=== PATIENT | male | born 1955 | race Caucasian/White ===

== ENCOUNTER 2019-10-17 14:46 | Outpatient (CLI) | payer MEDICAID, SELFPAY ==
--- NOTE | 2019-10-17 14:53 | USCV_ITS ---
Primo Steel Age: 63 Gender: M : 1955 Exam Date: 10/17/2019 15:07 Ordering Phys: Justin Grossman Technologist: Suad Colunga Exam Location: [facility] [place] Indication: Hypertension, Mixed hyperlipidemia BP: 138 / 91 HR: 110 Rhythm: Sinus Technical Quality: Fair MEASUREMENTS (Male / Female) Normal Values 2D ECHO LV Diastolic Diameter PLAX 5.9 cm 4.2 - 5.9 / 3.9 - 5.3 cm LV Systolic Diameter PLAX 5.6 cm LV Chamber Size 5.6 cm IVS Diastolic Thickness 2.0 cm 0.6 - 1.0 / 0.6 - 0.9 cm IVS Systolic Thickness 1.9 cm LVPW Diastolic Thickness 1.2 cm 0.6 - 1.0 / 0.6 - 0.9 cm LVPW Systolic Thickness 1.1 cm RV Chamber Size 2.6 cm LVOT Diameter 2.0 cm LV Ejection Fraction 2D Teich 11.9 % LV Ejection Fraction MOD 2C 38.9 % LV Ejection Fraction 2C AL 40.4 % LA Diameter 5.2 cm LA Width 3.3 cm LA Height 6.8 cm RA Width 3.3 cm RA Height 5.2 cm Aorta at Sinotubular Diameter 2.6 cm M-MODE LV Diastolic Diameter MM 6.9 cm 4.2 - 5.9 / 3.9 - 5.3 cm LV Systolic Diameter MM 6.0 cm LV Ejection Fraction MM Teich 27.3 % IVS Diastolic Thickness MM 1.0 cm 0.6 - 1.0 / 0.6 - 0.9 cm IVS Systolic Thickness MM 1.0 cm LVPW Diastolic Thickness MM 1.2 cm 0.6 - 1.0 / 0.6 - 0.9 cm LVPW Systolic Thickness MM 1.2 cm RV Diastolic Diameter MM 2.1 cm Aortic Annulus Diameter 3.3 cm LA Ao Ratio MM 1.6 MV E Point Septal Separation 1.8 cm DOPPLER AV Peak Velocity 120.0 cm/s LVOT Peak Velocity 80.0 cm/s AV Area Cont Eq vti 2.1 cm squared AV Area Cont Eq pk 2.1 cm squared MV Area PHT 5.0 cm squared Mitral E to A Ratio 1.2 MV E' Velocity 4.0 cm/s Mitral E to MV E' Ratio 18.0 Mitral E to LV E' Lateral Ratio 21.5 Mitral E to LV E' Septal Ratio 15.4 TR Peak Velocity 260.0 cm/s TR Peak Gradient 27.0 mmHg TR Mean Velocity 200.3 cm/s TR Mean Gradient 16.8 mmHg TR Velocity Time Integral 78.5 cm TV Peak E Velocity 41.0 cm/s Right Atrial Pressure 3.0 mmHg Pulmonary Artery Systolic Pressu 30.0 mmHg PV Peak Velocity 75.0 cm/s RV Acceleration Time 0.1 s RV Ejection Time 0.2 s RV AcT/ET 0.4 FINDINGS Left Ventricle Mildly dilated left ventricle. Severely decreased left ventricular systolic function. Left ventricular ejection fraction is estimated at 30-35 %. Global left ventricular hypokinesis. Grade II diastolic dysfunction, moderately elevated filling pressures. Flattened septum in systole consistent with right ventricle pressure overload. Right Ventricle Mildly increased right ventricular size. Mildly decreased right ventricular systolic function. Right ventricular systolic pressure 30 mmHg. Right Atrium Normal right atrial size. Right atrial pressure estimated at 3 mm Hg, Left Atrium Mildly increased left atrial size. Mitral Valve Mildly thickened mitral valve. No mitral valve stenosis. Mild mitral valve regurgitation. Aortic Valve Mildly thickened trileaft aortic valve. No aortic valve stenosis. No aortic valve regurgitation. Tricuspid Valve Structurally normal tricuspid valve. Trace tricuspid valve regurgitation. Pulmonic Valve Pulmonic valve not well visualized. Trace pulmonary valve regurgitation. Pericardium No pericardial effusion. Normal sized inferior vena cava. Aorta Normal sized aortic root. CONCLUSIONS 1. Mildly dilated left ventricle. Severely decreased left ventricular systolic function. Left ventricular ejection fraction is estimated at 30-35 %. Global left ventricular hypokinesis. Grade II diastolic dysfunction, moderately elevated filling pressures. 2. Mildly increased right ventricular size. Mildly decreased right ventricular systolic function. 3. Mild mitral valve regurgitation. 4. Mild pulmonary hypertension with pulmonary artery pressure estimated at 30 mm Hg. 5. No prior similar studies to compare. Ai Monroe MD (Electronically Signed) Final Date: 19 October 2019 17:10 S
== END 2019-10-17 14:47 | disposition home or self-care (01) ==
LOC: US 14:47
PROVIDERS: Visit Provider Physician Assistant Medical
DX: I34.9 Nonrheumatic mitral valve disorder, unspecified (principal); I10 Essential (primary) hypertension; E78.2 Mixed hyperlipidemia; E11.9 Type 2 diabetes mellitus without complications; I34.0 Nonrheumatic mitral (valve) insufficiency; I27.20 Pulmonary hypertension, unspecified
CPT/HCPCS: 93306

== ENCOUNTER 2020-01-07 13:30 | Outpatient (CLI) | payer MEDICAID, SELFPAY ==
--- NOTE | 2020-01-07 13:30 | USCV_ITS ---
Primo Steel Age: 64 Gender: M : 1955 Exam Date: 01/07/2020 14:00 Ordering Phys: Dahiana Hopkins Technologist: Andrea Ram Exam Location: [facility] [place] Indication: IN BP: 112 / 70 HR: 47 Rhythm: Sinus Technical Quality: Fair MEASUREMENTS (Male / Female) Normal Values 2D ECHO LV Diastolic Diameter PLAX 6.9 cm 4.2 - 5.9 / 3.9 - 5.3 cm LV Systolic Diameter PLAX 4.8 cm IVS Diastolic Thickness 1.3 cm 0.6 - 1.0 / 0.6 - 0.9 cm IVS Systolic Thickness 1.8 cm LVPW Diastolic Thickness 1.3 cm 0.6 - 1.0 / 0.6 - 0.9 cm LVPW Systolic Thickness 1.5 cm LVOT Diameter 2.1 cm LV Ejection Fraction 2D Teich 54.2 % LV Ejection Fraction MOD 2C 19.3 % LV Ejection Fraction 2C AL 22.3 % LA Diameter 5.7 cm LA Width 5.9 cm LA Height 7.1 cm RA Width 4.5 cm RA Height 6.0 cm Aorta at Sinotubular Diameter 2.4 cm M-MODE LV Diastolic Diameter MM 6.3 cm 4.2 - 5.9 / 3.9 - 5.3 cm LV Systolic Diameter MM 4.7 cm LV Ejection Fraction MM Teich 49.4 % IVS Diastolic Thickness MM 1.4 cm 0.6 - 1.0 / 0.6 - 0.9 cm IVS Systolic Thickness MM 1.9 cm LVPW Diastolic Thickness MM 1.5 cm 0.6 - 1.0 / 0.6 - 0.9 cm LVPW Systolic Thickness MM 1.8 cm RV Diastolic Diameter MM 2.5 cm Aortic Annulus Diameter 3.2 cm LA Ao Ratio MM 2.0 MV E Point Septal Separation 1.2 cm DOPPLER AV Peak Velocity 100.0 cm/s LVOT Peak Velocity 113.0 cm/s AV Area Cont Eq vti 4.8 cm squared AV Area Cont Eq pk 3.8 cm squared MV Area PHT 5.0 cm squared Mitral E to A Ratio 3.1 MV E' Velocity 67.5 cm/s Mitral E to MV E' Ratio 11.9 Mitral E to LV E' Lateral Ratio 13.2 Mitral E to LV E' Septal Ratio 10.9 TR Peak Velocity 385.7 cm/s TR Peak Gradient 59.5 mmHg TV Peak E Velocity 190.0 cm/s Right Atrial Pressure 3.0 mmHg Pulmonary Artery Systolic Pressu 62.5 mmHg FINDINGS Left Ventricle Severely increased left ventricular cavity size. Eccentric left ventricular hypertrophy. Severely decreased left ventricular systolic function. Left ventricular ejection fraction is estimated at 25-30 %. Global left ventricular hypokinesis. Abnormal septal motion consistent with conduction abnormality. Abnormal diastolic function. Right Ventricle Normal right ventricular size and systolic function. Right ventricular systolic pressure 62.5 mmHg. Right Atrium Normal right atrial size. Right atrial pressure estimated at 3 mmHg. Left Atrium Mildly increased left atrial size. Mitral Valve Mildly thickened mitral valve. No mitral valve stenosis. Mild- moderate mitral valve regurgitation. Aortic Valve Probably trileaflet aortic valve. No aortic valve stenosis. No aortic valve regurgitation. Tricuspid Valve Tricuspid valve not well visualized. Mild tricuspid valve regurgitation. Pulmonic Valve Pulmonic valve not well visualized. Pericardium No pericardial effusion. Aorta Normal-sized aortic root. CONCLUSIONS 1. This is a technically very difficult study. 2. Severely increased left ventricular cavity size. Eccentric left ventricular hypertrophy. Severely decreased left ventricular systolic function. Left ventricular ejection fraction is estimated at 25-30 %. Global left ventricular hypokinesis. 3. Normal right ventricular size and systolic function. 4. Severe pulmonary hypertension with pulmonary artery pressure estimated at 63 mmHg. 5. Mild-moderate mitral valve regurgitation. 6. When compared to previous echocardiogram dated 10/19/2019, left ventricular systolic function may have decreased somewhat. Ai Monroe MD (Electronically Signed) Final Date: 09 January 2020 17:46 S
== END 2020-01-07 13:31 | disposition home or self-care (01) ==
LOC: RAD 13:35
PROVIDERS: PCP Physician Assistant Medical; Visit Provider Nurse Practitioner Family
DX: I50.22 Chronic systolic (congestive) heart failure (principal); I27.20 Pulmonary hypertension, unspecified; I34.0 Nonrheumatic mitral (valve) insufficiency
CPT/HCPCS: 93306

== ENCOUNTER 2020-06-30 14:01 | Emergency (ER) | payer MEDICAID, SELFPAY ==
[2020-06-30 14:12] VITALS: BP 127/71; PULSE 94; RESP 16; TEMP 36.5; O2SAT 94; BMI 34.6
--- NOTE | 2020-06-30 14:21 | ECG_ITS ---
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 Measurements Intervals [place] Rate: 88 P: 60 [place]: 221 QRS: 128 QRSD: 189 T: 19 QT: 469 QTc: 570 Interpretive Statements SINUS RHYTHM WITH FIRST DEGREE AV BLOCK WITH FREQUENT VENTRICULAR PREMATURE COMPLEXES RIGHT BUNDLE BRANCH BLOCK AND POSSIBLE RIGHT VENTRICULAR HYPERTROPHY [RBBB, 1.5 mV R IN V1, RAD] LEFT POSTERIOR FASCICULAR BLOCK [QRS AXIS > 109, INFERIOR Q] Compared to ECG 10/03/2015 04:08:17 Ventricular premature complex(es) now present First degree AV block now present Electronically Signed On 07-01-2020 9:26:04 CDT by Ai Monroe M.D. [id number]
[2020-06-30 14:52] VITALS: PULSE 88
--- NOTE | 2020-06-30 14:52 | CT_ITS ---
WS: [id number] CT HEAD NONCONTRAST HISTORY: Symptoms of Acute Stroke TECHNIQUE: Contiguous axial imaging performed through the brain in 2.5 mm imaging. Bone and soft tiss ue windows. Sagittal and coronal reformats reviewed. All CT scans at [facility] use at ast one of these dose optimization techniques: automated exposure control; mA and/or kV adjustment pe r patient size (includes targeted exams where dose is matched to clinical indication); or iterative r econstruction. DLP: 883.61 mGy.cm COMPARISON: None available. No acute intracranial hemorrhage, midline shift or mass effect. Mild atrophy and mild chronic microvascular ischemic disease. No acute infarct. No sulcal effacement. Ventricles: Normal size with no hydrocephalus. No inferior displacement of the cerebellar tonsils. Paranasal sinuses: As visualized are clear. Mastoid air cells: Well pneumatized. Calvarium and scalp: Skull is intact with no soft tissue edema or swelling. CT/CT head wo con* [id number] IMPRESSION: 1. No acute infarct or hemorrhage. 2. Mild atrophy and mild chronic microvascular ischemic disease.
[2020-06-30 14:56] LABS: Basophils # 0.1 10^3/uL (0.0-0.1); Basophils % 0.6 %; Eosinophils # 0.2 10^3/uL (0.0-0.8); Eosinophils % 2.4 %; Hematocrit 52.1 % (42.0-52.0); Hemoglobin 16.8 g/dL (11.7-16.6); Lymphocytes % 9.9 %; Mean Corpuscular HGB Conc 32.2 g/dL (30.0-36.0); Mean Corpuscular Volume 83.8 fL (80-94); Mean Platelet Volume 13.3 fL (7.4-10.4); Monocytes # 0.8 10^3/uL (0.2-0.9); Monocytes % 8.4 %; Neutrophils # 7.72 10^3/uL (1.8-7.7); Neutrophils % 78.3 %; Nucleated Red Blood Cells % 0 %; Platelet Count 169 10^3/cmm (130-400); Red Blood Count 6.22 10^6/uL (4.1-5.3); Red Cell Distribution Width 14.2 % (12.1-15.1); White Blood Count 9.9 10^3/uL (4.0-10.0)
--- NOTE | 2020-06-30 14:59 | ED_ITS ---
HPI - Altered Mental Status General: Chief Complaint: Altered Mental Status Stated Complaint: Altered Mental Status Time Seen by Provider: 06/30/20 14:34 History of Present Illness: HPI narrative: 64-year-old male presents emergency room with his . Patient with episodes where he essentially have felt like an absence seizure. He states he is unable to talk or respond however he states he is completely aware of everything going on around him. Shortly after I came in the room he had 1 of these episodes he became visibly anxious and upset began crying but he would not able to verbalize anything. After approximately 2 minutes this episode passed and he was able to verbalize after the there was no tonic-clonic movement no tongue biting. He did not have any abnormal eye movements. He was awake and appeared to be looking around during this episode. He would look towards sound when his name was called during his episode. Once he recovered he states he does types episodes he has been having that brought him to the emergency room. MD complaint: confusion Onset (ago): minute(s) Timing confirmed by: family member Severity: mild Consistency of symptoms: Waxing and Waning Associated symptoms: Deny auditory hallucinations, visual hallucinations, del usions, depression, homicidal ideation, racing thoughts or suicidal ideation Review of Systems Const: Denies: fever(s), chills, body aches, change in appetite, fatigue or malaise ENMT: Denies: throat pain, ear or mastoid pain, nasal discharge or nasal congestion Card: Denies: chest pain, edema, dyspnea on exertion or orthopnea Resp: Denies: dyspnea, productive cough or non-productive cough GI: Denies: abdominal pain, nausea, vomiting, hematemesis, coffee ground emesis, diarrhea, constipation, bloating, hematochezia or melena : Denies: flank pain, dysuria, urinary frequency or urinary urgency Skin/Breast: Denies: rash or pruritus Psych: Denies: depression, visual hallucinations, auditory hallucinations, apolonia cidal ideation or homicidal ideation [facility] ED [facility]: Medical History (Updated 06/30/20 @ 17:33 by Kevin Hamilton DO) Cardiomegaly CHF (congestive heart failure) HTN (hypertension) Mitral valve regurgitation Surgical History S/P CABG (coronary artery bypass graft) Family History Brother , CHF Heart disease CHF (congestive heart failure) Father Heart disease Myocardial infarction Other Dementia Diabetes Stroke Social History (Updated 03/05/20 @ 15:22 by Jessenia Dee RN) Smoking and tobacco status: former smoker Alcohol intake: never Physical Exam Const: COMMON NORMALS: no acute distress GENERAL APPEARANCE: cooperative and comfortable ORIENTATION/CONSCIOUSNESS: Yes awake, Yes oriented to person, Yes oriented to place and Yes oriented to time HENMT: COMMON NORMALS: normocephalic, atraumatic and hearing grossly normal bilaterally HEAD & SCALP: normocephalic and atraumatic Neck/C-Spine: COMMON NORMALS: no JVD Lymph: LYMPHATIC: no lymphadenopathy noted and no lymphedema noted Resp: COMMON NORMALS: normal respiratory effort, No retractions, No use of accessory muscles and clear to auscultation bilaterally AUSCULTATION: clear to auscultation bilaterally Cardio: COMMON NORMALS: no JVD, regular rate, regular rhythm and No murmurs present (Cardio) RATE: regular rate RHYTHM: regular rhythm GI: COMMON NORMALS: Soft to palpation and No hepatosplenomegaly present AUSCULTATION: Yes normoactive bowel sounds PALPATION: Yes Soft to palpation, No Tenderness to palpation present (GI), No Guarding due to palpation present (GI) and Yes No hepatosplenomegaly present Extremity: COMMON NORMALS: normal to inspection, capillary refill normal, no clubbing, cyanosis or edema, no calf tenderness and no pedal edema Neuro: SENSORIUM/ORIENTATION: Yes oriented to person, Yes oriented to place and Yes oriented to time Psych: THOUGHT CONTENT: No delusions Skin: COMMON NORMALS: no rashes or lesions noted GENERAL SKIN EXAM: no rashes or lesions noted Course Vital Signs: Vital signs: Vital Signs Temperature 97.7 F 06/30/20 14:12 Pulse Rate 87 06/30/20 18:20 Respiratory Rate 18 06/30/20 18:20 Blood Pressure 122/84 06/30/20 18:20 Pulse Oximetry 98 06/30/20 18:20 MDM - Altered Mental Status MDM Narrative: Medical decision making narrative: Discussed with Dr. Limon. Sound like he is may be having partial complex seizures we will discharge him home loaded him with Keppra start Keppra 500 twice daily schedule outpatient EGD and follow-up with neuro. Also encourage patient is to follow-up with his primary care doctor to reevaluate his blood sugars. Lab Data: Labs: Lab Results 06/30/20 06/30/20 06/30/20 Range/Units 14:48 14:48 14:48 WBC 9.9 (4.0-10.0) 10^3/ uL RBC 6.22 H (4.1-5.3) 10^6/u L Hgb 16.8 H (11.7-16.6) g/dL Hct 52.1 H (42.0-52.0) % MCV 83.8 (80-94) fL MCH 27.0 L (28.0-34.0) pg MCHC 32.2 (30.0-36.0) g/dL RDW 14.2 (12.1-15.1) % Plt Count 169 (130-400) 10^3/c mm MPV 13.3 H (7.4-10.4) fL Neut % (Auto) 78.3 % Lymph % (Auto) 9.9 % [place] % (Auto) 8.4 % Eos % (Auto) 2.4 % Baso % (Auto) 0.6 % Neut # (Auto) 7.72 H (1.8-7.7) 10^3/u L Lymph # (Auto) 1.0 (0.8-4.8) 10^3/u L [place] # (Auto) 0.8 (0.2-0.9) 10^3/u L Eos # (Auto) 0.2 (0.0-0.8) 10^3/u L Baso # (Auto) 0.1 (0.0-0.1) 10^3/u L Nucleated RBC % (a uto) 0 % Nucleated RBCs # 0.0 /100WBC PT (12.1-14.9) SECO NDS INR (0.8-1.2) APTT (23.9-36.7) SECO NDS Sodium 133 L (136-145) mmol/L Potassium 3.6 (3.5-5.1) mmol/L Chloride 84 L (98-107) mmol/L Carbon Dioxide 39 H (22-29) mmol/L Anion Gap 13.6 (5-19) BUN 31 H (8-23) mg/dL Creatinine 1.4 H (0.7-1.2) mg/dL GFR Calculation 51.0 L (90-130) mL/min Glucose 504 H* (65-115) mg/dL Calculated Osmolal ity 305 H (285-295) mOsm/k g Calcium 9.4 (8.5-10.5) mg/dL Total Bilirubin 0.4 (0.15-1.2) mg/dL AST 32 (0-40) U/L ALT 49 H (0-41) U/L Alkaline Phosphata se 114 (40-130) IU/L Troponin T Baselin e 63 H (0-15) ng/L Total Protein 6.7 (6.6-8.7) g/dL Albumin 4.0 (3.5-5.2) g/dL Globulin 2.7 (1.3-4.6) g/dL Urine Color (Yellow) Urine Appearance (CLEAR) Urine pH (5-7) Ur Specific Gravit y (1.005-1.030) Urine Protein (Negative) Urine Glucose (UA) (Normal) Urine Ketones (Negative) Urine Blood (Negative) Urine Nitrate (Negative) Urine Bilirubin (Negative) Urine Urobilinogen (Negative) mg/dL Ur Leukocyte Lay ase (Negative) Urine RBC (0-2) /hpf Urine WBC (0-5) /hpf Ur Squamous Epith Cells (0-5) /hpf Amorphous Sediment Urine Bacteria (NONE) /hpf Urine Opiates Scre en (Negative) ng/mL Ur Barbiturates Sc reen (Negative) ng/mL Ur Phencyclidine S crn (Negative) ng/mL Ur Amphetamines Sc reen (Negative) ng/mL U Benzodiazepines Scrn (Negative) ng/mL Urine Cocaine Scre en (Negative) ng/mL U Marijuana (THC) Screen (Negative) ng/mL 06/30/20 06/30/20 06/30/20 Range/Units 14:48 15:15 15:15 WBC (4.0-10.0) 10^3/ uL RBC (4.1-5.3) 10^6/u L Hgb (11.7-16.6) g/dL Hct (42.0-52.0) % MCV (80-94) fL MCH (28.0-34.0) pg MCHC (30.0-36.0) g/dL RDW (12.1-15.1) % Plt Count (130-400) 10^3/c mm MPV (7.4-10.4) fL Neut % (Auto) % Lymph % (Auto) % [place] % (Auto) % Eos % (Auto) % Baso % (Auto) % Neut # (Auto) (1.8-7.7) 10^3/u L Lymph # (Auto) (0.8-4.8) 10^3/u L [place] # (Auto) (0.2-0.9) 10^3/u L Eos # (Auto) (0.0-0.8) 10^3/u L Baso # (Auto) (0.0-0.1) 10^3/u L Nucleated RBC % (a uto) % Nucleated RBCs # /100WBC PT 13.60 (12.1-14.9) SECO NDS INR 1.01 (0.8-1.2) APTT 25.2 (23.9-36.7) SECO NDS Sodium (136-145) mmol/L Potassium (3.5-5.1) mmol/L Chloride (98-107) mmol/L Carbon Dioxide (22-29) mmol/L Anion Gap (5-19) BUN (8-23) mg/dL Creatinine (0.7-1.2) mg/dL GFR Calculation (90-130) mL/min Glucose (65-115) mg/dL Calculated Osmolal ity (285-295) mOsm/k g Calcium (8.5-10.5) mg/dL Total Bilirubin (0.15-1.2) mg/dL AST (0-40) U/L ALT (0-41) U/L Alkaline Phosphata se (40-130) IU/L Troponin T Baselin e (0-15) ng/L Total Protein (6.6-8.7) g/dL Albumin (3.5-5.2) g/dL Globulin (1.3-4.6) g/dL Urine Color Straw (Yellow) Urine Appearance Clear (CLEAR) Urine pH 5 (5-7) Ur Specific Gravit y 1.010 (1.005-1.030) Urine Protein 1+ H (Negative) Urine Glucose (UA) 4+ H (Normal) Urine Ketones Negative (Negative) Urine Blood 2+ H (Negative) Urine Nitrate Negative (Negative) Urine Bilirubin Neg (Negative) Urine Urobilinogen Norm (Negative) mg/dL Ur Leukocyte Lay ase Negative (Negative) Urine RBC 5-10 H (0-2) /hpf Urine WBC None (0-5) /hpf Ur Squamous Epith Cells 0-4 H (0-5) /hpf Amorphous Sediment Not Reportable Urine Bacteria Trace (NONE) /hpf Urine Opiates Scre en Negative (Negative) ng/mL Ur Barbiturates Sc reen Negative (Negative) ng/mL Ur Phencyclidine S crn Negative (Negative) ng/mL Ur Amphetamines Sc reen Negative (Negative) ng/mL U Benzodiazepines Scrn Negative (Negative) ng/mL Urine Cocaine Scre en Negative (Negative) ng/mL U Marijuana (THC) Screen Negative (Negative) ng/mL Discharge Plan Discharge Patient Disposition: Home Clinical Impression: Seizures Condition: Stable Prescriptions: New Keppra 500 mg tablet 500 mg PO BID Qty: 60 RF: 0 No Action nitroglycerin [Nitrostat] 0.4 mg tablet, sublingual 0.4 mg SUBLINGUAL Q5M PRN (Reason: Chest Pain) RF: 0 aspirin [Adult Low Dose Aspirin] 81 mg tablet,delayed release (DR/EC) 81 mg PO DAILY@06 RF: 0 alogliptin 12.5 mg tablet 12.5 mg PO DAILY@1999 RF: 0 carvedilol 6.25 mg tablet 6.25 mg PO BID@ RF: 0 celecoxib [Celebrex] 200 mg capsule 200 mg PO DAILY@599 RF: 0 allopurinol 100 mg tablet 100 mg PO BID@ RF: 0 Lantus U-100 Insulin 100 unit/mL solution 25 unit SUBCUT BID@ RF: 0 pioglitazone 45 mg tablet 45 mg PO DAILY@1999 RF: 0 ergocalciferol (vitamin D2) 1,250 mcg (50,000 unit) capsule 1,250 mcg PO Q7D RF: 0 rosuvastatin 40 mg tablet 40 mg PO DAILY@599 RF: 0 Januvia 100 mg tablet 100 mg PO DAILY@1999 RF: 0 furosemide 40 mg tablet 60 mg PO BID@599,1999 RF: 0 metolazone 2.5 mg tablet 2.5 mg PO BID@599,1999 RF: 0 potassium chloride 20 mEq tablet extended release 20 meq PO TID@0600,1199,1999 RF: 0 Discharge Orders: Discharge ED (Routine); Ordered 06/30/20 Ordered By: Kevin Hamilton Referrals: Justin Grossman [Primary Care Provider] - Discharge Diet: Usual diet Discharge Activity: Limit activity as instructed Patient Instructions: Opioid Safety Activity Restrictions/Additional Instructions: Management will call to set you up for a EEG and a follow-up appointment with neurology. Coding Level of Care Code ED Leaf Size Picker for Edwin Fwd Exam Comprehensive
[2020-06-30 15:18] LABS: Anion Gap 13.6 (5-19); Blood Urea Nitrogen 31 mg/dL (8-23); Carbon Dioxide 39 mmol/L (22-29); Chloride 84 mmol/L (98-107); Potassium 3.6 mmol/L (3.5-5.1); Sodium 133 mmol/L (136-145)
[2020-06-30 15:19] LABS: Alanine Aminotransferase 49 U/L (0-41); Alkaline Phosphatase 114 IU/L (40-130); Aspartate Amino Transferase 32 U/L (0-40); Calcium 9.4 mg/dL (8.5-10.5); Globulin 2.7 g/dL (1.3-4.6); Osmolality Calculated 305 mOsm/kg (285-295); Total Bilirubin 0.4 mg/dL (0.15-1.2); Total Protein 6.7 g/dL (6.6-8.7)
[2020-06-30 15:20] LABS: Troponin(5th) Baseline 63 ng/L (0-15)
[2020-06-30 15:28] LABS: Glucose 504 mg/dL (65-115)
[2020-06-30 15:32] LABS: Add Urine Microscopic? YES; Bilirubin Urine Neg (Negative); Blood Urine 2+ (Negative); Glucose Urine UA 4+ (Normal); Ketones Urine Negative (Negative); Leukocyte Esterase Urine Negative (Negative); Nitrate Urine Negative (Negative); Protein Urine 1+ (Negative); Urine Appearance Clear (CLEAR); Urine Color Straw (Yellow); Urobilinogen Urine Norm (Negative); pH Urine 5 (5-7)
[2020-06-30 15:38] LABS: Add Urine Culture? No; Bacteria Urine TRACE /hpf; Squamous Epithelial Cell Urine 0-4 /hpf (0-5)
[2020-06-30 15:39] LABS: INR 1.01 (0.8-1.2)
[2020-06-30 15:40] LABS: Partial Thromboplastin Time 25.2 SECONDS (23.9-36.7)
[2020-06-30 15:42] LABS: Amphetamines Screen Urine Negative (Negative); Barbiturates Screen Urine Negative (Negative); Benzodiazepines Screen Urine Negative (Negative); Cocaine Screen Urine Negative (Negative); Opiate Screen Urine Negative (Negative); PCP Screen Urine Negative (Negative); THC Screen Urine Negative (Negative)
[2020-06-30 15:48] LABS: Slide Review Slide Review Perform
--- NOTE | 2020-06-30 16:21 | ECG_ITS ---
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 Measurements Intervals [place] Rate: 89 P: 65 DC: 209 QRS: 130 QRSD: 194 T: 26 QT: 472 QTc: 574 Interpretive Statements SINUS RHYTHM WITH FREQUENT VENTRICULAR PREMATURE COMPLEXES RIGHT BUNDLE BRANCH BLOCK AND POSSIBLE RIGHT VENTRICULAR HYPERTROPHY [RBBB, 1.5 mV R IN V1, RAD] LEFT POSTERIOR FASCICULAR BLOCK [QRS AXIS > 109, INFERIOR Q] Compared to ECG 06/30/2020 14:59:23 First degree AV block no longer present Electronically Signed On 07-01-2020 10:02:06 CDT by Ai Monroe M.D. [id number]
[2020-06-30] MEDS: insulin regular-human 100 units/1 mL 15 UNIT IVP (17:00)
[2020-06-30 17:03] VITALS: BP 108/76; PULSE 90; RESP 18; O2SAT 93
[2020-06-30 18:20] VITALS: BP 122/84; PULSE 87; RESP 18; O2SAT 98
== END 2020-06-30 18:21 | disposition home or self-care (01) ==
PROVIDERS: Nurse Practitioner Family; Emergency Provider Family Medicine; PCP Physician Assistant Medical
DX: R56.9 Unspecified convulsions (principal); Z79.82 Long term (current) use of aspirin; Z79.4 Long term (current) use of insulin; I11.0 Hypertensive heart disease with heart failure; I50.9 Heart failure, unspecified; Z95.1 Presence of aortocoronary bypass graft; Z87.891 Personal history of nicotine dependence
CPT/HCPCS: 70450; 80053; 80306; 81001; 84484; 85025; 85610; 85730; 93005; 96374; 96375; 99284; 99291; J1815; J1953

== ENCOUNTER 2021-03-02 14:11 | Emergency (ER) | payer MEDICAID, SELFPAY ==
[2021-03-02 14:22] VITALS: BMI 33.0
[2021-03-02 14:26] VITALS: BP 155/96; PULSE 86; RESP 20; TEMP 36.5; O2SAT 93
--- NOTE | 2021-03-02 15:07 | XR_ITS ---
WS: [id number] CHEST XRAY TECHNIQUE: Portable chest. CLINICAL INFORMATION: shortness of breath COMPARISON: FINDINGS: Heart: Cardiomegaly. Sternotomy. Lungs: Lungs are clear. No consolidation or pleural effusion. Moderate chronic emphysematous changes. Bones: Normal visualized bony structures. XR/XR chest 1V portable [id number] IMPRESSION: 1. Cardiomegaly with sternotomy. 2. No acute pulmonary infiltrates. 3. No focal pneumonia or pleural fluid.
[2021-03-02 15:08] VITALS: BP 112/86; PULSE 90; RESP 18; O2SAT 93
--- NOTE | 2021-03-02 15:09 | ECG_ITS ---
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 Measurements Intervals [place] Rate: 85 P: 47 VT: 223 QRS: 126 QRSD: 197 T: 1 QT: 463 QTc: 552 Interpretive Statements SINUS RHYTHM WITH FIRST DEGREE AV BLOCK WITH OCCASIONAL VENTRICULAR PREMATURE COMPLEXES RIGHT BUNDLE BRANCH BLOCK [120+ ms QRS DURATION, UPRIGHT V1, 40+ ms S IN I/aVL/V4/V5/V6] LEFT POSTERIOR FASCICULAR BLOCK [QRS AXIS > 109, INFERIOR Q] Compared to ECG 06/30/2020 16:27:31 First degree AV block now present Ventricular premature complex(es) no longer present Electronically Signed On 03-03-2021 5:01:32 HIGH SCHOOL GUIDANCE COUNSELOR by Ai Monroe M.D. [id number]
[2021-03-02 15:36] LABS: Basophils # 0.1 10^3/uL (0.0-0.1); Basophils % 0.5 %; Eosinophils # 0.3 10^3/uL (0.0-0.8); Eosinophils % 2.5 %; Hematocrit 53.5 % (42.0-52.0); Hemoglobin 17.5 g/dL (11.7-16.6); Lymphocytes # 1.2 10^3/uL (0.8-4.8); Lymphocytes % 12.2 %; Mean Corpuscular HGB Conc 32.7 g/dL (30.0-36.0); Mean Corpuscular Hemoglobin 27.5 pg (28.0-34.0); Mean Platelet Volume 12.4 fL (7.4-10.4); Monocytes # 0.7 10^3/uL (0.2-0.9); Neutrophils # 7.72 10^3/uL (1.8-7.7); Neutrophils % 77.6 %; Nucleated Red Blood Cells % 0 %; Platelet Count 173 10^3/cmm (130-400); Red Blood Count 6.37 10^6/uL (4.1-5.3); Red Cell Distribution Width 14.6 % (12.1-15.1)
[2021-03-02 15:58] LABS: Troponin(5th) Baseline 36 ng/L (0-15)
[2021-03-02 16:04] LABS: Alanine Aminotransferase 18 U/L (0-41); Albumin Level 4.2 g/dL (3.5-5.2); Alkaline Phosphatase 95 IU/L (40-130); Anion Gap 17.5 (5-19); Aspartate Amino Transferase 17 U/L (0-40); Blood Urea Nitrogen 28 mg/dL (8-23); Calcium 9.2 mg/dL (8.5-10.5); Carbon Dioxide 33 mmol/L (22-29); Chloride 90 mmol/L (98-107); Globulin 3.5 g/dL (1.3-4.6); Glomerular Filtration Rate 60.8 mL/min (90-130); Glucose 230 mg/dL (65-115); NT Pro B Type Natriuretic Pept 1724 pg/mL (0-125); Osmolality Calculated 297 mOsm/kg (285-295); Potassium 3.5 mmol/L (3.5-5.1); Sodium 137 mmol/L (136-145); Total Bilirubin 0.3 mg/dL (0.15-1.2); Total Protein 7.7 g/dL (6.6-8.7)
--- NOTE | 2021-03-02 16:19 | PC.NURSE ---
patient sitting on side of bed at this time. patient in no obivous distress. Patient on attending ambulatory care. Patient denies questions/concerns athis time. Marco Antonio erails raised x 1 and bed in low, locked position. Call light within reach.
--- NOTE | 2021-03-02 16:26 | W.ED.SOB ---
HPI - SOB/Dyspnea General: Chief Complaint: Shortness of Breath/Dyspnea Stated Complaint: SENT BY [facility] SOB CARDIAC HISTORY Time Seen by Provider: 03/02/21 14:46 Source: patient and family History of Present Illness: HPI Narrative: 65-year-old male presents emergency department chief complaint of progressive shortness of breath and difficulty breathing has been ongoing getting worse for last several months he has been seen by primary care previously placed on some inhalers and which she reports made his coughing worse he reports the coughing has been ongoing for about 3 months patient reports she has been previously worked up for concerns of COPD before reports she has had no known official diagnosis but reports she was a fairly persistent smoker in his younger years. Patient reports when he does cough he gets some yellowish phlegm production that usually happens more in the morning. Patient additionally reports having a history of cardiac issues in which she did have open heart bypass. He reports having no recent episodes of chest pain or palpitations associated with his shortness of breath. MD elicited complaint: shortness of breath and cough Pertinent past history: COPD and congestive heart failure Onset (ago): week(s) (3) Relieving factors: nothing Associated symptoms: Deny abdominal pain, chest pain, extremity pain, fever(s), nausea, palpitations or vomiting Review of Systems General: Reports: 10 or more systems reviewed and unremarkable except in HPI and below Const: Denies: fever(s), chills, fatigue or malaise Eyes: Denies: change in vision or blurry vision Card: Denies: chest pain or palpitations Resp: Reports: dyspnea, productive cough and wheezing GI: Denies: abdominal pain, nausea or vomiting : Denies: flank pain Musc: Denies: extremity pain or extremity swelling Skin/Breast: Denies: rash or pruritus Neuro: Denies: headache(s) Psych: Denies: anxiety or depression [place]/Lymph: Denies: easy bleeding All/Imm: Denies: urticaria, throat swelling or facial swelling PFSH ED PFSH: Medical History (Updated 03/02/21 @ 17:05 by Vincent Zheng) Cardiomegaly CHF (congestive heart failure) HTN (hypertension) Mitral valve regurgitation Surgical History S/P CABG (coronary artery bypass graft) Family History Brother , CHF Heart disease CHF (congestive heart failure) Father Heart disease Myocardial infarction Other Dementia Diabetes Stroke Social History Smoking and tobacco status: former smoker Alcohol intake: never Physical Exam Narrative: EXAM NARRATIVE: On exam patient appears in no obvious acute distress. Const: COMMON NORMALS: no acute distress, patient oriented x3 and healthy appearing HENMT: COMMON NORMALS: normocephalic and atraumatic HEAD & SCALP: normocephalic and atraumatic Eye: COMMON NORMALS: Equal, round and reactive pupils present and EOMs intact bilaterally PUPIL: Yes Equal, round and reactive pupils present Neck/C-Spine: COMMON NORMALS: full ROM, supple and no JVD Lymph: LYMPHATIC: no lymphadenopathy noted Chest: COMMONS NORMALS: normal inspection of the chest and normal palpation of entire chest wall Resp: COMMON NORMALS: normal respiratory effort, No retractions and clear to auscultation bilaterally (Diminished breath sounds appreciated by laterally mild expiratory wheezing ) EFFORT & INSPECTION: Yes able to speak in complete sentences and Yes symmetric chest movement AUSCULTATION: clear to auscultation bilaterally (Diminished breath sounds appreciated by laterally mild expiratory wheezing ) Cardio: COMMON NORMALS: no JVD, regular rate and regular rhythm RATE: regular rate RHYTHM: regular rhythm GI: COMMON NORMALS: Normal to inspection, nondistended, normoactive bowel sounds present, Soft to palpation and non-tender INSPECTION: Yes normal to inspection PALPATION: Yes Soft to palpation : COMMON NORMALS: Yes no CVA tenderness BLADDER/KIDNEY EXAM: Yes no CVA tenderness Back/Pelvis: COMMON NORMALS: no CVA tenderness Extremity: COMMON NORMALS: normal to inspection and full ROM Neuro: COMMON NORMALS: patient oriented x3, CN's II-XII intact bilaterally, moves all extremities and no focal motor deficits Psych: COMMON NORMALS: mental status grossly normal, Normal thought process present, cooperative and normal affect THOUGHT PROCESS: Normal thought process present Skin: COMMON NORMALS: no rashes or lesions noted GENERAL SKIN EXAM: no rashes or lesions noted Course ED course: Due to the patient's symptom condition that he was established labwork and imaging was obtained will continue to follow. Lab work and imaging came back reassuring patient was reassessed appears to have a COPD exacerbation started on both steroids and Tessalon Perles for his associated symptoms patient was advised for the follow-up with primary care in 2 to 3 days was instructed to return in the interim if any of his symptoms persist or worse. Vital Signs: Vital signs: Vital Signs Temperature 97.8 F 03/02/21 17:15 Pulse Rate 88 03/02/21 17:15 Respiratory Rate 20 H 03/02/21 17:15 Blood Pressure 142/101 03/02/21 17:15 Pulse Oximetry 94 03/02/21 17:15 MDM - SOB/Dyspnea Lab Data: Labs: Lab Results 03/02/21 03/02/21 03/02/21 15:25 15:25 15:25 WBC 10.0 10^3/uL 10^3 /uL (4.0-10.0) RBC 6.37 10^6/uL H 10 ^6/uL (4.1-5.3) Hgb 17.5 g/dL H g/dL (11.7-16.6) Hct 53.5 % H % (42.0-52.0) MCV 84.0 fl fl (80-94) MCH 27.5 pg L pg (28.0-34.0) MCHC 32.7 g/dL g/dL (30.0-36.0) RDW 14.6 % % (12.1-15.1) Plt Count 173 10^3/cmm 10^3 /cmm (130-400) MPV 12.4 fL H fL (7.4-10.4) Neut % (Auto) 77.6 % % Lymph % (Auto) 12.2 % % [place] % (Auto) 7.0 % % Eos % (Auto) 2.5 % % Baso % (Auto) 0.5 % % Neut # (Auto) 7.72 10^3/uL H 10 ^3/uL (1.8-7.7) Lymph # (Auto) 1.2 10^3/uL 10^3/ uL (0.8-4.8) [place] # (Auto) 0.7 10^3/uL 10^3/ uL (0.2-0.9) Eos # (Auto) 0.3 10^3/uL 10^3/ uL (0.0-0.8) Baso # (Auto) 0.1 10^3/uL 10^3/ uL (0.0-0.1) Nucleated RBC % (a uto) 0 % % Nucleated RBCs # 0.0 /100WBC /100W BC Sodium 137 mmol/L mmol/L (136-145) Potassium 3.5 mmol/L mmol/L (3.5-5.1) Chloride 90 mmol/L L mmol/ L (98-107) Carbon Dioxide 33 mmol/L H mmol/ L (22-29) Anion Gap 17.5 (5-19) BUN 28 mg/dL H mg/dL (8-23) Creatinine 1.2 mg/dL mg/dL (0.7-1.2) GFR Calculation 60.8 mL/min L mL/ min (90-130) Glucose 230 mg/dL H mg/dL (65-115) Calculated Osmolal ity 297 mOsm/kg H mOs m/kg (285-295) Calcium 9.2 mg/dL mg/dL (8.5-10.5) Total Bilirubin 0.3 mg/dL mg/dL (0.15-1.2) AST 17 U/L U/L (0-40) ALT 18 U/L U/L (0-41) Alkaline Phosphata se 95 IU/L IU/L (40-130) Troponin T Baselin e 36 ng/L H ng/L (0-15) NT-Pro-B Natriuret Pep 1724 pg/mL H pg/m L (0-125) Total Protein 7.7 g/dL g/dL (6.6-8.7) Albumin 4.2 g/dL g/dL (3.5-5.2) Globulin 3.5 g/dL g/dL (1.3-4.6) Discharge Plan Discharge Patient Disposition: Home Clinical Impression: Acute exacerbation of chronic obstructive airways disease Condition: Stable Prescriptions: New prednisone 20 mg tablet 20 mg PO BID 7 Days Qty: 14 RF: 0 Tessalon Perles 100 mg capsule 100 mg PO TID PRN (Reason: cough) Qty: 14 RF: 0 No Action nitroglycerin [Nitrostat] 0.4 mg tablet, sublingual 0.4 mg SUBLINGUAL Q5M PRN (Reason: Chest Pain) RF: 0 aspirin [Adult Low Dose Aspirin] 81 mg tablet,delayed release (DR/EC) 81 mg PO DAILY RF: 0 carvedilol 6.25 mg tablet 6.25 mg PO BID RF: 0 allopurinol 100 mg tablet 100 mg PO TID RF: 0 potassium chloride 20 mEq tablet extended release 20 meq PO TID@0600,1200,2000 Qty: 90 RF: 6 furosemide 40 mg tablet 60 mg PO BID@0600,2000 Qty: 90 RF: 0 pioglitazone 45 mg tablet 45 mg PO DAILY RF: 0 rosuvastatin 40 mg tablet 40 mg PO DAILY RF: 0 Januvia 100 mg tablet 100 mg PO DAILY RF: 0 potassium chloride 10 mEq tablet extended release 10 meq PO DAILY@12 RF: 0 ergocalciferol (vitamin D2) 1,250 mcg (50,000 unit) capsule 50,000 unit PO .ON MON AND FRI RF: 0 ProAir HFA 90 mcg/actuation Hfa Aerosol Inhaler 2 puff INHALATION Q4H PRN (Reason: Shortness Of Breath) RF: 0 Symbicort 160-4.5 mcg/actuation HFA aerosol inhaler 2 puff INHALATION BID RF: 0 Lantus Solostar U-100 Insulin 100 unit/mL (3 mL) insulin pen 27 unit SUBCUT BID RF: 0 Discharge Orders: Discharge ED (Routine); Ordered 03/02/21 Ordered By: Vincent Zheng Referrals: Justin Grossman [Primary Care Provider] - 1-3 days Discharge Diet: Advance as tolerated Patient Instructions: Chronic Bronchitis (ED) Activity Restrictions/Additional Instructions: Follow-up with your primary care doctor in 1 to 3 days, take medication as prescribed and return the interim if any of her symptoms persist or worsen. Coding Level of Care Code ED [employer] Fwd Exam Comprehensive
[2021-03-02 16:59] VITALS: BP 136/100; PULSE 92; RESP 22; O2SAT 94
[2021-03-02 17:15] VITALS: BP 142/101; PULSE 88; RESP 20; TEMP 36.6; O2SAT 94
== END 2021-03-02 17:17 | disposition home or self-care (01) ==
PROVIDERS: Emergency Provider Emergency Medicine; PCP Physician Assistant Medical
DX: J44.1 Chronic obstructive pulmonary disease with (acute) exacerbation (principal); Z79.82 Long term (current) use of aspirin; Z79.4 Long term (current) use of insulin; I11.0 Hypertensive heart disease with heart failure; I50.9 Heart failure, unspecified; Z87.891 Personal history of nicotine dependence
CPT/HCPCS: 71045; 80053; 83880; 84484; 85025; 93005; 96374; 99283; J2930